=== PATIENT | female | born 1985 | race African-American/Black ===

== ENCOUNTER 2017-07-29 09:54 | Emergency (ER) | payer SELFPAY ==
[~2017-07-29] VITALS: Ht 175.3 cm; Wt 104.5 kg
[~2017-07-29 09:54] MED LIST: BACT2OIN TOP; BUPR-197 PO; CITA10SO PO; DICL75 PO
[2017-07-29 09:55] VITALS: BP 142/78; PULSE 96; RESP 14; TEMP 98.7; O2SAT 99
[2017-07-29] MEDS ORDERED: CEPHALEXIN MONOHYDRATE 500 MG CAP PO ONE (10:15)
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
[2017-07-29] MEDS ORDERED: TETANUS/DIPHTHERIA TOXOID ADULT 0.5 ML VIAL IM ONE (10:30)
[2017-07-29] MEDS ORDERED: LIDOCAINE HCL 1% 30 ML VIAL INFIL ONE (10:45)
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
[2017-07-29] MEDS ORDERED: oxyCODONE/ACETAMINOPHEN 5 MG/325 MG TAB PO ONE (11:45)
[2017-07-29] MEDS ORDERED: AUGM875T3 PO (12:05)
[2017-07-29] MEDS ORDERED: IBUP-232 PO (12:05)
== END 2017-07-29 12:37 | disposition home or self-care (01) ==
LOC: NEPD 09:54
DX: S02.2XXA Fracture of nasal bones, initial encounter for closed fracture (principal); S01.81XA Laceration without foreign body of other part of head, initial encounter; S01.21XA Laceration without foreign body of nose, initial encounter; F41.9 Anxiety disorder, unspecified; F32.9 Major depressive disorder, single episode, unspecified; Y04.8XXA Assault by other bodily force, initial encounter; Z23 Encounter for immunization
CPT/HCPCS: 12011; 70450; 70486; 72125; 90471; 90714

== ENCOUNTER 2018-02-22 10:36 | Emergency (ER) | payer SELFPAY ==
[~2018-02-22] VITALS: Ht 175.3 cm; Wt 106.5 kg
[~2018-02-22 10:36] MED LIST changes: +AUGM875T3 PO; +IBUP-232 PO
[2018-02-22 10:45] VITALS: BP 142/89; PULSE 106; RESP 18; TEMP 98; O2SAT 100
[2018-02-22] MEDS ORDERED: KETOROLAC TROMETHAMINE 60 MG/2 ML (IM) VIAL IM ONE (11:30)
--- NOTE | 2018-02-22 11:42 | PD ---
HPI Chief Complaint: Director Epidemiology Problem/Complaint Time Seen by Provider: 10:52 Travel History International Travel<30 days: No Contact w/Intl Traveler<30days: No Traveled to known affect area: No History of Present Illness HPI 32-year-old female presents to the emergency department with complaint of abnormal vaginal discharge for 2 weeks with foul odor that started yesterday. She also has a painful rash to her genital area that started yesterday. Reports dysuria and low back pain that started yesterday also. Denies fever, vomiting, abdominal pain. Unknown exposure to any STD/STI. Last menstrual period was last week. Has not taken any medications or try any treatments to alleviate her symptoms. Pain is aggravated with urination. No known relieving factors. Symptoms are moderate in severity. No primary care provider. No orbitread operator. No known allergies. Denies significant past medical history. Has no other medical complaints. No other modifying factors or associated signs and symptoms. PFSH Past Medical History Anxiety: Yes Depression: Yes Diminished Hearing: No ?: Not : 2 Para: 1 : 1 Past Surgical History Section: Yes (05/12/2008) Gynecologic Surgery: Yes () Social History Alcohol Use: No Tobacco Use: Yes (5 CIGARETTES A DAY) Substance Use: No Allergies-Medications (Allergen,Severity, Reaction): Coded Allergies: No Known Allergies (Verified Adverse Reaction, Unknown, 07/29/17) Reported Meds & Prescriptions Reported Meds & Active Scripts Active Acyclovir 200 Mg Cap 200 Mg PO 5 TIMES A DAY 10 Days Keflex (Cephalexin) 500 Mg Cap 500 Mg PO Q12H 7 Days Doxycycline Hyclate 100 Mg Cap 100 Mg PO BID 14 Days Flagyl (Metronidazole) 500 Mg Tab 500 Mg PO BID 14 Days Tramadol (Tramadol HCl) 50 Mg Tab 50 Mg PO Q4H PRN Ibuprofen 600 Mg Tab 600 Mg PO Q6H PRN Augmentin (Amoxicillin-Clavulanate) 875-125 Mg Tab 1 Tab PO BID [address] (Diclofenac Sod) 75 Mg Tab 75 Mg PO Q12HR PRN Bactroban 2% Oint (22 gm) (Mupirocin) 22 Gm Oint 2 % TOP Q6HR APPLY TO AFFECTED AREAS Reported Wellbutrin (Bupropion HCl) 100 Mg Tab 150 Mg PO ONCE Celexa (Citalopram Hydrobromide) 10 Mg/5 Ml Xiomara 10 Mg PO DAILY Review of Systems Except as stated in HPI: all other systems reviewed are Neg Physical Exam Narrative GENERAL: Well-nourished, well-developed black female patient, in no acute distress; afebrile, nontoxic-appearing SKIN: Warm and dry. HEAD: Atraumatic. Normocephalic. EYES: Pupils equal and round. No scleral icterus. No injection or drainage. ENT: Mucous membranes pink and moist. NECK: Trachea midline. No lymphadenopathy. CARDIOVASCULAR: Regular rate RESPIRATORY: No accessory muscle use. GASTROINTESTINAL: Abdomen soft, non-tender, nondistended. Bilateral pelvic region nontender to palpation. Hepatic and splenic margins not palpable. No guarding, rigidity, rebound tenderness. PELVIC: Exam done in the presence of a nurse. Multiple vesicles consistent with genital herpes noted to the labia majora, labia minora, rectal area, and vaginal vault. speculum exam reveals edematous and erythematous cervix with light greenish/yellowish, mucopurulent, foul-smelling discharge. Bimanual exam reveals no palpable masses or adnexa tenderness, no uterine tenderness. No cervical motion tenderness. BACK: Positive CVA tenderness bilaterally. MUSCULOSKELETAL: No obvious deformities. No clubbing. No cyanosis. No edema. NEUROLOGICAL: Awake and alert. No obvious cranial nerve deficits. Motor grossly within normal limits. Normal speech. PSYCHIATRIC: Appropriate mood and affect; insight and judgment normal. Data Data Last Documented VS Vital Signs Date Time Temp Pulse Resp B/P (MAP) Pulse Ox O2 Delivery O2 Flow Rate FiO2 02/22/18 10:45 98.0 106 18 142/89 (106) 100 Orders Orders Gc And Chlamydia Pcr (02/22/18 11:07) Wet Prep Profile (02/22/18 11:07) Urinalysis - C+S If Indicated (02/22/18 11:07) Ed Urine Pregnancytest Poc (02/22/18 11:07) Ketorolac Inj (Toradol Inj) (02/22/18 11:30) Acetamin-Hydrocod 325-5 Mg ([place] 5-325 (02/22/18 11:45) Acyclovir (Zovirax) (02/22/18 11:45) Herpes Simplex Virus Culture (02/22/18 11:42) Urine Culture (02/22/18 11:55) Azithromycin Powd Pack (Zithromax Powd P (02/22/18 12:45) Lidocaine 1% Inj (50 Ml) (Xylocaine 1% I (02/22/18 12:45) Ceftriaxone Inj (Rocephin Inj) (02/22/18 12:45) Metronidazole (Flagyl) (02/22/18 12:45) Doxycycline (Vibramycin) (02/22/18 12:45) Ed Discharge Order (02/22/18 12:38) Lidocaine 1% Inj (Xylocaine 1% Inj) (02/22/18 13:00) Labs Laboratory Tests Test 02/22/18 11:55 Urine Color YELLOW Urine Turbidity HAZY Urine pH 6.0 Urine Specific [place] 1.019 Urine Protein 30 mg/dL Urine Glucose (UA) NEG mg/dL Urine Ketones TRACE mg/dL Urine Occult Blood MOD Urine Nitrite NEG Urine Bilirubin NEG Urine Urobilinogen 2.0 MG/DL Urine Leukocyte Esterase LARGE Urine RBC 11 /hpf Urine WBC 35 /hpf Urine WBC Clumps FEW Urine Squamous Epithelial Cells 7 /hpf Urine Bacteria MANY /hpf Urine Mucus FEW /lpf Urine Trichomonas RARE Microscopic Urinalysis Comment CULTURE INDICATED Clue Cells (Wet Prep) PRESENT Vaginal Trichomonas (Wet Prep) PRESENT Vaginal Yeast (Wet Prep) NONE SEEN Chlamydia trachomatis DNA (PCR) NOT DETECTED Neisseria gonorrhoeae DNA (PCR) NOT DETECTED MDM Medical Decision Making Medical Screen Exam Complete: Yes Emergency Medical Condition: Yes Medical Record Reviewed: Yes Differential Diagnosis Genital herpes, chlamydia, gonorrhea, trichomonas, vaginal yeast, BV Narrative Course 32-year-old female physical exam consistent with genital herpes and cervicitis. Wet prep, chlamydia, gonorrhea, viral culture of the labia, UPT, urinalysis, [place] ordered. 1235: Clue cells and Trichomonas positive. Vaginal yeast negative. Urinalysis with signs of infection. Azithromycin 1 g, Rocephin 1 g, doxycycline, Flagyl 500 mg ordered and administered in the ER. Acyclovir, doxycycline, Flagyl, Keflex, tramadol prescribed for home. Instructed patient to follow-up for test of cure in approximately 2 weeks. Patient provided resources for follow-up. Instructed patient to follow up with primary care provider. Patient verbalizes understanding and agreement with treatment plan. Patient is medically cleared and stable for discharge. Discussed reasons to return to the emergency department. Patient agrees with treatment plan. The patients vital signs are stable and the patient is stable for outpatient follow-up and treatment. Patient discharged home, stable and in no acute distress. Diagnosis Primary Impression: Genital herpes Qualified Codes: A60.00 - Herpesviral infection of urogenital system, unspecified Additional Impressions: Bacterial vaginosis Trichomoniasis PID (acute pelvic inflammatory disease) Referrals: [facility] Primary [facility] Physician [facility] Dept. Patient Instructions: Bacterial Vaginosis (DC), Bacterial Vaginosis (ED), Cervicitis (ED), Chlamydia (ED), General Instructions, Genital Herpes Simplex ( ED), Gonorrhea (ED), Pelvic Inflammatory Disease (ED), Sexually Transmitted Diseases (ED), Trichomoniasis (ED) Additional Instructions: Avoid sexual activity for 14 days No sexual activity with your partner/s until they have been treated and waited 14 days Avoid sexual activity while genital sores exist Inform all sexual partners within the past 3-6 months that they need to be evaluated and treated Use condoms every time you have sex Follow-up with primary care provider Follow-up with orbitread operator/[facility] now for test of cure and follow up in 2 weeks Return to the emergency department immediately with worsening of symptoms Med/Other Pt SpecificInfo: Prescription(s) given Scripts Acyclovir (Acyclovir) 200 Mg Cap 200 MG PO 5 TIMES A DAY for Mgmt Viral Infection for 10 Days, CAP 1 Refill Prov: Jana Zaragoza REAM CUTTER 02/22/18 Cephalexin (Keflex) 500 Mg Cap 500 MG PO Q12H for Infection for 7 Days, #14 CAP 0 Refills Prov: Jana Zaragoza REAM CUTTER 18 Doxycycline Hyclate (Doxycycline Hyclate) 100 Mg Cap 100 MG PO BID for Infection for 14 Days, #28 CAP 0 Refills Prov: Jana Zaragoza REAM CUTTER 18 Metronidazole (Flagyl) 500 Mg Tab 500 MG PO BID for Infection for 14 Days, #28 TAB 0 Refills Prov: Jana Zaragoza REAM CUTTER 18 Tramadol (Tramadol) 50 Mg Tab 50 MG PO Q4H Y for PAIN, #10 TAB 0 Refills Prov: Jana Zaragoza 02/22/18 Disposition: 01 DISCHARGE HOME Condition: Stable Jana Zaragoza Feb 22, 2018 11:42
[2018-02-22] MEDS ORDERED: ACYCLOVIR 800 MG TAB PO ONE (11:45)
[2018-02-22] MEDS ORDERED: ACETAMINOPHEN/HYDROcodone 325 MG/5 MG TAB PO ONE (11:45)
[2018-02-22] MEDS ORDERED: ACYC200C66 PO ×2 (11:57→12:51)
[2018-02-22] MEDS ORDERED: TRAM50TA PO (11:57)
[2018-02-22 12:20] LABS: BACTERIA, URINE MANY /hpf; BILIRUBIN, URINE NEG (NEG); BLOOD, URINE MOD (NEG); GLUCOSE,URINE NEG (NEG); KETONE, URINE TRACE mg/dL (NEG); MUCUS URINE FEW /lpf (OCC); NITRITE,URINE NEG (NEG); SQUAMOUS EPITHELIAL CELL URINE 7 /hpf (0-5); TRICHOMONAS, URINE RARE; URINE COLOR YELLOW (YELLW/STRAW); URINE LEUKOCYTE ESTERASE LARGE (NEG); WHITE BLOOD CELL CLUMPS FEW
[2018-02-22] MEDS ORDERED: DOXY100C PO (12:31)
[2018-02-22] MEDS ORDERED: METR-1 PO (12:31)
[2018-02-22] MEDS ORDERED: CEPH-460 PO (12:37)
[2018-02-22] MEDS ORDERED: LIDOCAINE HCL 1% 50 ML VIAL IM ONE (12:45)
[2018-02-22] MEDS ORDERED: AZITHROMYCIN PWD FOR SUSP 1 GM PACKET PO ONE (12:45)
[2018-02-22] MEDS ORDERED: metroNIDAZOLE 500 MG TAB PO ONE (12:45)
[2018-02-22] MEDS ORDERED: DOXYCYCLINE HYCLATE 100 MG CAP PO ONE (12:45)
[2018-02-22] MEDS ORDERED: LIDOCAINE HCL 1% 20 ML VIAL ONE (13:00)
== END 2018-02-22 13:51 | disposition home or self-care (01) ==
LOC: NEPD 10:36
DX: A60.00 Herpesviral infection of urogenital system, unspecified (principal); N76.0 Acute vaginitis; B96.89 Other specified bacterial agents as the cause of diseases classified elsewhere; N73.9 Female pelvic inflammatory disease, unspecified; A59.9 Trichomoniasis, unspecified; F41.9 Anxiety disorder, unspecified; F32.9 Major depressive disorder, single episode, unspecified; F17.210 Nicotine dependence, cigarettes, uncomplicated; Z79.899 Other long term (current) drug therapy
CPT/HCPCS: 81001; 84703; 87086; 87210; 87255; 87491; 87591; 96372; 99284; J0696